=== PATIENT | female | born 1950 | race Caucasian/White ===

== ENCOUNTER 2024-12-29 18:26 | Emergency (ER) | payer MEDICARE, OTHER ==
[~2024-12-29] VITALS: Ht 165.1 cm; Wt 70.0 kg
[2024-12-29 18:29] VITALS: BP 142/76; PULSE 76; RESP 16; TEMP 36.7; O2SAT 99
== END 2024-12-29 23:31 | disposition left against medical advice (07) ==
LOC: ER 18:26
DX: R00.2 Palpitations (principal); E78.00 Pure hypercholesterolemia, unspecified; I10 Essential (primary) hypertension; Z53.21 Procedure and treatment not carried out due to patient leaving prior to being seen by health care provider
CPT/HCPCS: 93005